=== PATIENT | male | born 2000 | race African-American/Black ===

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

== ENCOUNTER 2019-01-17 08:01 | Emergency (ER) | payer OTHER ==
[~2019-01-17] VITALS: Ht 182.9 cm; Wt 76.4 kg
[~2019-01-17 08:01] MED LIST: NAPR-837 PO; RANI15TA PO
[2019-01-17 09:00] VITALS: BP 121/73
--- NOTE | 2019-01-18 21:13 | ECGEPIP ---
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
== END 2019-01-17 09:05 | disposition home or self-care (01) ==
LOC: M ED 08:01 → EDBD 08:01 → M ED 09:05
DX: R07.9 Chest pain, unspecified (principal); R06.02 Shortness of breath; R10.9 Unspecified abdominal pain; I45.19 Other right bundle-branch block

== ENCOUNTER 2019-06-10 10:51 | Inpatient (IN) | payer OTHER ==
[~2019-06-10] VITALS: Ht 177.8 cm; Wt 71.4 kg
[2019-06-10 11:29] LABS: HEMATOCRIT 44.9 % (42.0-52.0); HEMOGLOBIN 15.4 g/dl (13.5-17.5); MEAN CORPUSCULAR HEMOGLOBIN 33.1 pg (27.0-33.0); MEAN CORPUSCULAR HGB CONC 34.3 g/dl (32.0-36.5); MEAN CORPUSCULAR VOLUME 96.6 fl (80.0-96.0); PLATELET COUNT, AUTOMATED 276 10^3/uL (150-450); RED BLOOD COUNT 4.65 10^6/uL (4.30-6.10); WHITE BLOOD COUNT 3.9 10^3/uL (4.0-10.0)
[2019-06-10] MEDS ORDERED: TRAZ-252 PO (11:34)
[2019-06-10] MEDS ORDERED: ACET1TAB55 PO (11:34)
[2019-06-10 12:04] LABS: AMPHETAMINES LEVEL URINE NEGATIVE (NEGATIVE); BARBITURATES URINE NEGATIVE (NEGATIVE); BENZODIAZEPINES URINE NEGATIVE (NEGATIVE); CANNABINOIDS URINE NEGATIVE (NEGATIVE); COCAINE METABOLITE URINE NEGATIVE (NEGATIVE); METHADONE URINE NEGATIVE (NEGATIVE); OPIATES URINE NEGATIVE (NEGATIVE); PHENCYCLIDINE URINE NEGATIVE (NEGATIVE)
[2019-06-10 12:33] LABS: ACETAMINOPHEN LEVEL < 2.0 UG/ML (10.0-30.0); ALBUMIN 4.1 GM/DL (3.2-5.2); ALT/SGPT 38 U/L (12-78); BILIRUBIN,DIRECT 0.3 MG/DL (0.0-0.2); BILIRUBIN,TOTAL 1.9 MG/DL (0.2-1.0); BLOOD UREA NITROGEN 10 MG/DL (7-18); CALCIUM LEVEL 9.9 MG/DL (8.5-10.1); CARBON DIOXIDE LEVEL 30 MEQ/L (21-32); CHLORIDE LEVEL 105 MEQ/L (98-107); CREATININE FOR GFR 0.98 MG/DL (0.70-1.30); ETHYL ALCOHOL (ETHANOL) < 0.003 % (0.000-0.010); GLUCOSE, FASTING 75 MG/DL (70-100); POTASSIUM SERUM 4.6 MEQ/L (3.5-5.1); SALICYLATE LEVEL < 1.7 MG/DL (5.0-30.0); SODIUM LEVEL 139 MEQ/L (136-145); TOTAL PROTEIN 7.2 GM/DL (6.4-8.2)
[2019-06-10] MEDS ORDERED: MAALOX 30 ML SUSP *UDC PO PRN (14:30)
[2019-06-10 16:05] VITALS: BP 121/62
[2019-06-11] MEDS: traZODone 50 MG TAB PO PRN (01:12)
[2019-06-11 06:03] VITALS: BP 116/57
[2019-06-11] MEDS: ACETAMINOPHEN TAB 650MG DOSE (2X325MG) PO PRN (08:36)
--- NOTE | 2019-06-11 11:51 | HPEPDOC ---
[facility] Medical History & Physical Date of Admission Jun 11, 2019 Date of Service: Jun 11, 2019 History and Physical CHIEF COMPLAINT: Hospitalist consult for medical H&P HISTORY OF PRESENT ILLNESS: 19 yo male seen and examined at bedside. Complains of chronic back pain. Denies any bowel or bladder symptoms. No other medical complaints. PAST MEDICAL HISTORY: Denies PAST SURGICAL HISTORY: Denies ALLERGIES: Please see below. REVIEW OF SYSTEMS: Negative except as per HPI. HOME MEDICATIONS: Please see below. PHYSICAL EXAMINATION: VITAL SIGNS: See below GENERAL APPEARANCE: NAD HEENT: NC/AT, EOMI, PERRL Lungs: CTA B/L Heart: +S1S2, RRR Abd: soft, NT, +BS Ext: no edema LABORATORY DATA: See below. MICROBIOLOGY: Please see below. ASSESSMENT: 19 yo male seen by hospitalist for medical H&P for [facility] #chronic back pain - no alarming symptoms - has been ongoing as per patient - denies trauma Vital Signs Vital Signs Date Time Temp Pulse Resp B/P (MAP) Pulse Ox O2 Delivery O2 Flow Rate FiO2 06/11/19 11:42 Room Air 06/11/19 06:03 98.9 65 16 116/57 (76) 06/10/19 15:56 100 Home Medications Scheduled Trazodone HCl (Trazodone HCl) 50 Mg Tablet, 50 MG PO QHS Allergies Coded Allergies: No Known Allergies (Unverified , 06/25/18) A-FIB/CHADSVASC A-FIB History Current/History of A-Fib/PAF?: No Current PO Anticoag Therapy: No LANCE EDMOND MD Jun 11, 2019 11:51
[2019-06-11] MEDS: CitaloPRAM (CeleXA) 20 MG TAB PO SCH (13:55)
[2019-06-11 16:29] VITALS: BP 127/63
--- NOTE | 2019-06-11 17:10 | MHHPE ---
DATE OF ADMISSION: 06/10/2019 DATE OF EVALUATION: 06/11/2019 HISTORY OF PRESENT ILLNESS: This is the first psychiatric treatment for this 19-year-old black man who was admitted after he went to the walk-in clinic at [facility] taken by , as the found a rope that had been tied into a noose on the floor of the patient's room. The patient admits he bought the rope a few weeks ago and last night he had made a noose with it in intent of hanging himself. He stated that he has been feeling there is no meaning to his life. The patient tells me that he has been depressed most of his life, "but it goes in cycles." Then, when I asked him to describe how depressed he was, he stated, "What is depression?" And so, he became somewhat vague at that point, but admitted that he does feel hopeless and helpless. Says that his sleep is erratic. When I asked him if he was having suicidal thoughts today, he stated, "I'm trying to find out what's next," and he said he was not suicidal today. I did not elicit any hypomanic or manic-like symptoms or panic symptoms or obsessive-compulsive disorder (OCD) symptoms in this patient. PAST PSYCHIATRIC HISTORY: He has had no prior psychiatric treatment. He says there was an attempt when he was 17 years old where he said he overdosed on some pills, the names of which he cannot recall, and he woke up three days after that, but never did seek treatment. The patient does say that his PA started him on trazodone recently for difficulty with sleep. The patient states that his sleep is erratic. Some days he sleeps a lot, some days he does not sleep much. FAMILY HISTORY: He thinks his dad had trouble with anxiety and that a maternal uncle committed suicide, but he does not know much about whether this person had any psychiatric treatment or not. MEDICAL HISTORY: He says that sometimes he has lower back pain. SUBSTANCE ABUSE: He says that he did probably drink too much alcohol at one point, but he feels now he drinks occasionally. Denies any drug use. ABUSE HISTORY: He denies any history of physical or sexual abuse. REVIEW OF SYSTEMS: VITAL SIGNS: Blood pressure is 127/63, pulse is 63 and respirations are 16. APPEARANCE: He does not appear to be in any apparent distress. NEUROMUSCULAR SYSTEM: The patient's gait is normal and there are no involuntary movements in his extremities. All other systems were reviewed and found to be negative. MENTAL STATUS EXAMINATION: This patient is alert, oriented times three. Eye contact is fair. Psychomotor activity is decreased. He is verbally spontaneous. There is no formal thought disorder noted. He says his mood is sad. Affect constricted, but appropriate to mood. He is not psychotic. He is denying suicidal or homicidal ideations now. He is not homicidal. Concentration is fair. Memory intact. Insight and judgment poor. DIAGNOSES: 1. Other specified depressive disorder. 2. Rule out major depressive disorder. TREATMENT PLAN: At this point, we will further observe and evaluate this patient for depressive symptomatology and continued resolution of suicidal ideation. We will start him on a trial of Celexa 20 mg daily and continue with trazodone 50 mg at bedtime as needed for insomnia that had been started by his primary care provider. ANNMARIE
[2019-06-12] MEDS: traZODone 50 MG TAB PO PRN ×2 (00:45→21:14)
[2019-06-12 06:52] VITALS: BP 120/78
[2019-06-12] MEDS: CitaloPRAM (CeleXA) 20 MG TAB PO SCH (08:56)
[2019-06-12 16:42] VITALS: BP 126/59
--- NOTE | 2019-06-12 17:39 | MHIPN ---
DATE: 06/12/2019 The patient today tells me that he is "alright." He then tells me that he slept good. I asked him what his mood was like today and his answer was "I am still waiting and curious to see what comes today." Then he finally stated, "I am still feeling down a bit." He then went on about feeling that being in the hospital and trying to get treatment is going to cause him more problems and then he eventually admitted that what has been stressing him out is that he has a lot of stuff piled up both in the [employer] and the family, and he is not sure how to deal with the stressors at this point. MENTAL STATUS EXAMINATION: He is alert and oriented times three. Eye contact is fair. Psychomotor activity is decreased. There is no formal thought disorder. Mood is "down." Affect is constricted but appropriate to mood. He is not psychotic. He denies being suicidal or homicidal. Concentration is fair. Memory intact. Insight and judgment poor. DIAGNOSES: 1. Other specified depressive disorder. 2. Rule out major depressive disorder. TREATMENT PLAN: At this point, we will continue to monitor the patient for continued elevation and stabilization of his mood and continued resolution of suicidal ideation. So far he is tolerating the Celexa, and we will continue to titrate medications as indicated. ANNMARIE
--- NOTE | 2019-06-13 06:49 | IPNPDOC ---
Text Note Date of Service The patient was seen on 06/12/19. NOTE Subjective: Patient seen and examined at bedside. No new medical complaints. Objective: VITAL SIGNS: See below GENERAL APPEARANCE: NAD HEENT: NC/AT, EOMI, PERRL Lungs: CTA B/L Heart: +S1S2, RRR Abd: soft, NT, +BS Ext: no edema ASSESSMENT: 19 yo male admitted to [facility], co-management by hospitalist for medical issues #chronic back pain - no other symptoms - can defer for further outpatient evaluation VS,Fishbone, I+O VS, Fishbone, I+O Vital Signs Date Time Temp Pulse Resp B/P (MAP) Pulse Ox O2 Delivery O2 Flow Rate FiO2 06/12/19 16:42 98.7 58 16 126/59 (81) 06/12/19 10:46 Room Air 06/10/19 15:56 100 LANCE EDMOND MD Jun 13, 2019 06:49
[2019-06-13 06:52] VITALS: BP 120/71
[2019-06-13] MEDS: CitaloPRAM (CeleXA) 20 MG TAB PO SCH (08:54)
--- NOTE | 2019-06-13 09:51 | MHIPNPDOC ---
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 He was brought to behavioral [facility] by his significant other who reported that he was severely depressed and needed help. He was brought to the ER and subsequently admitted. The patient has made significant progress over his presentation, but [facility] is concerned due to his presentation and likely need for long- term treatment. Interval History The patient is met with today. He reports he is feeling much better on the Celexa. Denies any headaches, GI upset, nausea, vomiting, constipation, chest pain, shortness of breath, or any other concerns with Celexa. He reports that he is interested in being outside of our unit as he reports it is really difficult with the acute population. However, [facility] requested that we ask him about long-term treatment as they wish to consider this for this patient. He reported that he was amenable to this approach and wished to be placed in long-term treatment due to his presentation and relatively severe depressive symptoms outside of his presentation to our unit. No major behavioral problems overnight, social, amenable on the unit, attending group. Review Of Systems As above. Psychotherapy None on this visit. Vital Signs Reviewed. Mental Status Examination General: Well dressed with good hygiene Speech: Spontaneous and fluid Thought processes: Linear and logical MSK: Smooth and coordinated gait, no signs of tremors or involuntary orofacial movements Thought content: Future orientated Abstract reasoning, and computation: Intact Description of associations: Intact Description of abnormal or psychotic thoughts: Denies any suicidal or homicidal ideation. Denies any auditory or visual hallucinations. Does not appear to be responding to internal stimuli. Does not appear to be endorsing any bizarre or paranoid ideation. Judgment: fair Insight: fair Orientation: Alert and orientated 3 Cognition: Grossly normal Recent and remote memory: Intact Attention span and concentration: Intact Fund of knowledge: Adequate Mood: "okay" Affect: Euthymic with a full range Diagnoses MDD, severe, in partial remission. Assessment and Plan The patient will be continued on Celexa as below. No major changes. We will perform a referral to long-term at the request of chain of command and patient reports doing better with the Celexa. However, chain of command still worried given the severity of his suicidal presentation. Disposition Long-term treatment, bed to bed transfer anticipated, unknown date. Time Spent 15 minutes face to face. Thursday Vital Signs Vital Signs Date Time Temp Pulse Resp B/P (MAP) Pulse Ox O2 Delivery O2 Flow Rate FiO2 06/13/19 06:52 97.0 50 12 120/71 (87) 06/12/19 10:46 Room Air 06/10/19 15:56 100 Current Medications Current Medications Medications (Trade) Dose Ordered Sig/Gloria Route PRN Reason Start Time Stop Time Status Last Admin Dose Admin Acetaminophen (Tylenol Tab) 650 mg Q6HP PRN PO HEADACHE or DISCOMFORT 06/10/19 14:30 06/11/19 08:36 Al Hydrox/Mg Hydrox/Simethicone (Mylanta) 30 ml Q4HP PRN PO HEARTBURN/INDIGESTION 06/10/19 14:30 Citalopram Hydrobromide (CeleXA) 20 mg QAM PO 06/11/19 09:00 06/13/19 08:54 Diphenhydramine HCl (Benadryl) 25 mg Q6HP PRN PO ANXIETY/AGITATION 06/10/19 14:30 Home Med (Med Rec Complete!) ASDIRECTED XX 06/10/19 14:30 06/10/19 14:30 DC Trazodone HCl (Desyrel) 50 mg QHSP PRN PO INSOMNIA 06/10/19 14:30 06/12/19 21:14 Allergies Coded Allergies: No Known Allergies (Unverified , 06/25/18) DONAVON TREJO DO Jun 13, 2019 09:51
[2019-06-13 16:33] VITALS: BP 139/82
[2019-06-14 07:00] VITALS: BP 123/60
[2019-06-14] MEDS: CitaloPRAM (CeleXA) 20 MG TAB PO SCH (08:27)
--- NOTE | 2019-06-14 10:47 | MHIPNPDOC ---
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 He was brought to behavioral health by his significant other who reported that he was severely depressed and needed help. He was brought to the ER and subsequently admitted. The patient has made significant progress over his presentation, but [facility] is concerned due to his presentation and likely need for long- term treatment. Interval History The patient was met with today. He reports he is amenable to going to inpatient. He does report some relief as he feels that his depression could continue to improve. Continues to report some fatigue, loss of interest, guilts, but concentration, focus, hopelessness have been improving. Denies any headaches, dizziness, GI upset, nausea, vomiting, constipation, diarrhea. Does report some mild "queasiness" related to the citalopram being at 20 mg. Denies any tremors, otherwise, nursing notes no major problems. No behavioral issues, attends groups and is active on the unit. Review Of Systems As above. Psychotherapy None on this visit. Vital Signs Reviewed. Mental Status Examination General: Well dressed with good hygiene Speech: Spontaneous and fluid Thought processes: Linear and logical MSK: Smooth and coordinated gait, no signs of tremors or involuntary orofacial movements Thought content: Future orientated Abstract reasoning, and computation: Intact Description of associations: Intact Description of abnormal or psychotic thoughts: Denies any suicidal or homicidal ideation. Denies any auditory or visual hallucinations. Does not appear to be responding to internal stimuli. Does not appear to be endorsing any bizarre or paranoid ideation. Judgment: fair Insight: fair Orientation: Alert and orientated 3 Cognition: Grossly normal Recent and remote memory: Intact Attention span and concentration: Intact Fund of knowledge: Adequate Mood: "okay" Affect: Dysthymic with constricted range. Diagnoses MDD, severe, in partial remission. Assessment and Plan Lower citalopram to 10 mg daily to reduce queasiness as possible GI side effect. Disposition Long-term admission, coordination with long-term care needed, unknown time for transfer bed to bed. Time Spent 15 minutes [id number]. Thursday Vital Signs Vital Signs Date Time Temp Pulse Resp B/P (MAP) Pulse Ox O2 Delivery O2 Flow Rate FiO2 06/14/19 09:01 Room Air 06/14/19 07:00 98.2 64 14 123/60 (81) 06/10/19 15:56 100 Current Medications Current Medications Medications (Trade) Dose Ordered Sig/Gloria Route PRN Reason Start Time Stop Time Status Last Admin Dose Admin Acetaminophen (Tylenol Tab) 650 mg Q6HP PRN PO HEADACHE or DISCOMFORT 06/10/19 14:30 06/11/19 08:36 Al Hydrox/Mg Hydrox/Simethicone (Mylanta) 30 ml Q4HP PRN PO HEARTBURN/INDIGESTION 06/10/19 14:30 Citalopram Hydrobromide (CeleXA) 20 mg QAM PO 06/11/19 09:00 06/14/19 08:27 Diphenhydramine HCl (Benadryl) 25 mg Q6HP PRN PO ANXIETY/AGITATION 06/10/19 14:30 Home Med (Med Rec Complete!) ASDIRECTED XX 06/10/19 14:30 06/10/19 14:30 DC Trazodone HCl (Desyrel) 50 mg QHSP PRN PO INSOMNIA 06/10/19 14:30 06/12/19 21:14 Allergies Coded Allergies: No Known Allergies (Unverified , 06/25/18) DONAVON TREJO DO Jun 14, 2019 10:47
[2019-06-14 18:00] VITALS: BP 129/60
[2019-06-14] MEDS: traZODone 50 MG TAB PO PRN (21:10)
[2019-06-15 07:01] VITALS: BP 121/73
[2019-06-15] MEDS: ACETAMINOPHEN TAB 650MG DOSE (2X325MG) PO PRN (09:29)
[2019-06-15] MEDS: CitaloPRAM (CeleXA) 10 MG TABLET PO SCH (09:29)
[2019-06-15 14:50] VITALS: BP 131/59
--- NOTE | 2019-06-15 21:16 | MHIPN ---
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 Patient reportedly wanted to hang himself after his found him with a rope and wanted to hurt himself. This is his first psychiatric hospitalization. Continues to be depressed. He is on Celexa 10 mg once daily. Current stressors are family related as well as work related. MENTAL STATUS EXAMINATION: Casually dressed, cooperative. Makes good eye contact. Psychomotor activity is normal. Speech rate, rhythm, volume are good. Thought process: Linear, goal-directed. Thought content: Denied suicidal or homicidal ideas. Denied any delusions. Mood is depressed. Affect is somewhat blunted. He is alert, oriented to time, place, and situation. Memory: Immediate, remote, recent are good. Insight and judgment are fair to limited. VITAL SIGNS: Temperature 98.7, pulse is 64, respiratory rate is 18, blood pressure 131/59, pulse oximetry 100. LABORATORY DATA: CBC within normal limits. CMP within normal limits. Toxicology was negative. DIAGNOSIS: Depressive disorder unspecified. PLAN: Continue current medication. Continue individual and group therapy. Patient was given psychoeducation regarding nature of his illness and side effects and the benefits of the medication. ESTIMATED LENGTH OF STAY: 3-4 days. Patient is likely to go to a long-term facility in [place]. He is waiting for the chain of command to approve it.
[2019-06-16] MEDS: traZODone 50 MG TAB PO PRN ×2 (00:14→20:30)
[2019-06-16 06:38] VITALS: BP 102/59
[2019-06-16] MEDS: CitaloPRAM (CeleXA) 10 MG TABLET PO SCH (09:24)
[2019-06-16 18:00] VITALS: BP 129/60
--- NOTE | 2019-06-16 19:01 | MHIPN ---
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 He reportedly wanted to hang himself after his significant other found him with the rope and wanted to hurt himself. This is his first psychiatric hospitalization. He continues to be depressed. He reports that when he is stressed he feels as though there are several persons occupying his mind and it makes him forget his existence. He reports that it happens when he is stressed. Current stressors are family related as well work related. MENTAL STATUS EXAMINATION: He is neatly dressed in casual clothes, makes good eye contact. Psychomotor activity is normal. Speech: Rate, rhythm and volume are good. Thought process: Linear, goal-directed. Thought content: Denied any suicidal or homicidal ideas. 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 His insight and judgment are fair to limited. Immediate, remote, recent memories are good. He is oriented to time, place and person. VITAL SIGNS: Temperature is 98.3, pulse is 59, respiratory rate is 16, blood pressure is 102/59. REVIEW OF SYSTEMS: Denied chest or palpitations. Denied abdominal pain or dysuria. Denied cough or shortness of breath. Denies dizziness, numbness and tingling. Gait is normal. CURRENT MEDICATIONS: Citalopram 10 mg once daily. PLAN: Increase the citalopram to 20 mg once daily and his transfer to long-term facility in [place] in process. Continue individual, group and milieu therapy.
[2019-06-17 06:44] VITALS: BP 119/58
[2019-06-17] MEDS: CitaloPRAM (CeleXA) 20 MG TAB PO SCH (09:37)
[2019-06-17 18:00] VITALS: BP 129/79
--- NOTE | 2019-06-17 18:30 | MHIPN ---
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 He reportedly wanted to hang himself after his significant other found him with the rope and wanted to hurt himself. This is the first psychiatric hospitalization. He continues to be depressed. He reports that when he is stressed he feels as though there are several persons occupying his mind and it makes him forget his existence. He reports that it happens when he is stressed out. Current stressors are mainly family related. The patient denies any sexual or physical abuse. MENTAL STATUS EXAMINATION: Neatly dressed, cooperative, made good eye contact. Psychomotor activity is normal. Mood is mildly depressed. Affect is appropriate to for the mood. Speech: Rate, rhythm and volume are good. Thought process: Linear, goal-directed. Thought content: Denied any suicidal or homicidal ideas. However, he reports that some personalities are occupying his thoughts when he is stressed. Probably, it is a dissociative disorder unspecified. His insight and judgment are fair to limited. Immediate, remote and recent memories are good. He is oriented to time, place and person. REVIEW OF SYSTEMS: Denied chest pain or palpitations. Denied abdominal pain or dysuria. Denied cough or shortness of breath. Denied dizziness, numbness and tingling. CURRENT MEDICATIONS: Citalopram 20 mg once daily. He denies any side effect from the medication. VITAL SIGNS: Temperature 98.5, pulse is 76, respiratory rate is 12, blood pressure is 119/58. PLAN: Continue current medication. Continue individual, group and milieu therapy. The patient is waiting for transfer to a long-term treatment facility in [place].
[2019-06-17] MEDS: traZODone 50 MG TAB PO PRN (21:16)
[2019-06-18 06:44] VITALS: BP 120/69
[2019-06-18] MEDS: CitaloPRAM (CeleXA) 20 MG TAB PO SCH (08:24)
[2019-06-18 16:24] VITALS: BP 136/74
[2019-06-18] MEDS: traZODone 50 MG TAB PO PRN (21:51)
[2019-06-19 06:48] VITALS: BP 119/71
[2019-06-19] MEDS: CitaloPRAM (CeleXA) 20 MG TAB PO SCH (09:29)
[2019-06-19 16:06] VITALS: BP 135/76
[2019-06-19] MEDS: diphenhydrAMINE 25 MG CAP PO PRN (20:28)
[2019-06-20 06:42] VITALS: BP 133/61
[2019-06-20] MEDS: CitaloPRAM (CeleXA) 20 MG TAB PO SCH (08:29)
[2019-06-20] MEDS: diphenhydrAMINE 25 MG CAP PO PRN ×2 (11:47→22:28)
[2019-06-20] MEDS: ACETAMINOPHEN TAB 650MG DOSE (2X325MG) PO PRN (11:47)
[2019-06-20 16:47] VITALS: BP 125/73
[2019-06-20] MEDS ORDERED: CELE20TA PO (17:47)
--- NOTE | 2019-06-21 13:07 | MHDS ---
DATE OF ADMISSION: 06/10/2019 DATE OF DISCHARGE: 06/21/2019 DIAGNOSIS: Depressive disorder unspecified. 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 The patient reportedly wanted to hang himself. His found him with a rope in his rooms. For details of history of present illness, past psychiatric history, family history and personal history, please refer to his initial evaluation. COURSE IN THE HOSPITAL: The patient initially was depressed and complained of some vegetative signs like decreased appetite, poor sleep. He was placed on citalopram 20 mg once daily, made some partial recovery, however continued to be depressed and preoccupied, and after consultation with the Chain of Command it was decided that he will be transferred to a vermin extermin[facility] facility in [place]. MENTAL STATUS EXAMINATION: Casually dressed. Cooperative. Made good eye contact. Psychomotor activity is decreased. Speech rate, rhythm and volume are good. Thought process linear and goal directed. Thought content denied any suicidal or homicidal thoughts. Denies any delusions. His insight and judgment are limited. Memory immediate, remote and recent are good. PLAN: The plan is to transfer him to a [facility] facility for behavioral [facility] in [place]. DISCHARGE MEDICATIONS: : - citalopram 20 mg once daily
== END 2019-06-21 03:51 | disposition other institution (70) | DRG 881 ==
LOC: M ED 10:51 → M ED INP 14:17 → M PSY 16:00
PROVIDERS: ADMIT Psychiatry & Neurology Addiction Medicine; ATTEND Psychiatry & Neurology Addiction Medicine
DX: F32.9 Major depressive disorder, single episode, unspecified (principal); R45.851 Suicidal ideations; Z79.899 Other long term (current) drug therapy; M54.9 Dorsalgia, unspecified

== ENCOUNTER 2019-07-25 17:08 | Emergency (ER) | payer OTHER ==
[~2019-07-25] VITALS: Ht 182.9 cm; Wt 70.9 kg
[~2019-07-25 17:08] MED LIST changes: +ACET1TAB55 PO; +CELE20TA PO; +TRAZ-252 PO
[2019-07-25 17:30] VITALS: BP 119/57
[2019-07-25 17:59] LABS: HEMATOCRIT 46.4 % (42.0-52.0); HEMOGLOBIN 16.2 g/dl (13.5-17.5); MEAN CORPUSCULAR HGB CONC 34.9 g/dl (32.0-36.5); MEAN CORPUSCULAR VOLUME 94.5 fl (80.0-96.0); PLATELET COUNT, AUTOMATED 308 10^3/uL (150-450); RED BLOOD COUNT 4.91 10^6/uL (4.30-6.10); WHITE BLOOD COUNT 5.6 10^3/uL (4.0-10.0)
[2019-07-25 18:18] LABS: AMPHETAMINES LEVEL URINE NEGATIVE (NEGATIVE); BARBITURATES URINE NEGATIVE (NEGATIVE); BENZODIAZEPINES URINE NEGATIVE (NEGATIVE); CANNABINOIDS URINE NEGATIVE (NEGATIVE); COCAINE METABOLITE URINE NEGATIVE (NEGATIVE); METHADONE URINE NEGATIVE (NEGATIVE); OPIATES URINE NEGATIVE (NEGATIVE); PHENCYCLIDINE URINE NEGATIVE (NEGATIVE)
[2019-07-25 18:33] LABS: ACETAMINOPHEN LEVEL < 2.0 UG/ML (10.0-30.0); ALBUMIN 3.9 GM/DL (3.2-5.2); ALT/SGPT 46 U/L (12-78); BILIRUBIN,DIRECT 0.3 MG/DL (0.0-0.2); BILIRUBIN,TOTAL 2.6 MG/DL (0.2-1.0); BLOOD UREA NITROGEN 14 MG/DL (7-18); CALCIUM LEVEL 9.5 MG/DL (8.5-10.1); CARBON DIOXIDE LEVEL 28 MEQ/L (21-32); CHLORIDE LEVEL 104 MEQ/L (98-107); CREATININE FOR GFR 1.15 MG/DL (0.70-1.30); ETHYL ALCOHOL (ETHANOL) < 0.003 % (0.000-0.010); GLUCOSE, FASTING 100 MG/DL (70-100); POTASSIUM SERUM 4.1 MEQ/L (3.5-5.1); SALICYLATE LEVEL < 1.7 MG/DL (5.0-30.0); SODIUM LEVEL 138 MEQ/L (136-145); TOTAL PROTEIN 7.2 GM/DL (6.4-8.2)
--- NOTE | 2019-07-26 10:06 | ECGEPIP ---
[facility] - ED Test Date: 2019-07-25 Pat Name: ELSIE MONROE Department: Room: - Gender: Male [employer]: : 2000 Requested By: Florin Galdamez Order Number: [id number] Reading MD: Lucy Carreon Measurements Intervals [place] Rate: 65 P: 34 VT: 147 QRS: 81 QRSD: 94 T: 64 QT: 377 QTc: 394 Interpretive Statements SINUS RHYTHM ST ELEVATION, PROBABLY EARLY REPOLARIZATION, SIMILAR 01/17/19 Electronically Signed on 07-26-2019 10:06:27 EDT by Lucy Carreon
== END 2019-07-25 20:02 | disposition home or self-care (01) ==
LOC: M ED 17:08
DX: F43.20 Adjustment disorder, unspecified (principal); F33.9 Major depressive disorder, recurrent, unspecified; Z79.899 Other long term (current) drug therapy
CPT/HCPCS: 36415; 80048; 80076; 80307; 84443; 85027; 93005; 99284; G0480